=== PATIENT | male | born 1985 | race African-American/Black ===

== ENCOUNTER 2016-10-07 22:44 | Emergency (ER) | payer MEDICAID ==
[~2016-10-07] VITALS: Ht 175.3 cm; Wt 69.0 kg
[2016-10-07] MEDS ORDERED: IBUPROFEN 800MG TABLET PO ONE (23:45)
[2016-10-08 00:20] VITALS: BP 123/87
== END 2016-10-08 01:10 | disposition home or self-care (01) ==
LOC: ER 22:44
DX: S43.101A Unspecified dislocation of right acromioclavicular joint, initial encounter (principal); F17.210 Nicotine dependence, cigarettes, uncomplicated; F12.10 Cannabis abuse, uncomplicated; V00.131A Fall from skateboard, initial encounter; Y93.89 Activity, other specified; Y92.89 Other specified places as the place of occurrence of the external cause
CPT/HCPCS: 73030; 99284; Z7610; A4565

== ENCOUNTER 2016-11-07 07:47 | Emergency (ER) | payer MEDICAID ==
[~2016-11-07] VITALS: Ht 175.3 cm; Wt 66.0 kg
[2016-11-07] MEDS ORDERED: KETOROLAC 60MG/2ML VIAL IM ONE (08:45)
[2016-11-07] MEDS ORDERED: KETOROLAC 60MG/2ML VIAL IM NR (09:15)
[2016-11-07 10:17] VITALS: BP 113/63
== END 2016-11-07 11:45 | disposition home or self-care (01) ==
LOC: ER 08:11
DX: S40.012A Contusion of left shoulder, initial encounter (principal); F12.10 Cannabis abuse, uncomplicated; V00.131A Fall from skateboard, initial encounter; Y93.51 Activity, roller skating (inline) and skateboarding; Y99.8 Other external cause status; Y92.89 Other specified places as the place of occurrence of the external cause
CPT/HCPCS: 73030; 96372; 99284; J1885; A4565